=== PATIENT | male | born 1935 | race Caucasian/White ===

== ENCOUNTER 2019-10-03 11:12 | Inpatient (IN) | payer OTHER, MEDICARE ==
[~2019-10-03] VITALS: Ht 172.7 cm; Wt 115.5 kg
[2019-10-03] MEDS ORDERED: CARVEDILOL12.5 MG PO (11:31)
[2019-10-03] MEDS ORDERED: Azopt10 ML BOTHEYES (11:31)
[2019-10-03] MEDS ORDERED: DILTIAZEM 24HR240 M4 PO (11:32)
[2019-10-03] MEDS ORDERED: HYDCHL25 PO (11:32)
[2019-10-03] MEDS ORDERED: INSUGL100V SC (11:33)
[2019-10-03] MEDS ORDERED: LEVSOD50 PO (11:33)
[2019-10-03] MEDS ORDERED: NOVOLOG100 UNIT/1 SC (11:33)
[2019-10-03] MEDS ORDERED: METF500 PO ×2 (11:34)
[2019-10-03] MEDS ORDERED: LISI20 PO (11:34)
[2019-10-03] MEDS ORDERED: TIMO.5OPSO BOTHEYES (11:35)
[2019-10-03] MEDS ORDERED: Crestor40 MG PO (11:35)
[2019-10-03 11:37] LABS: BASOPHILS ABSOLUTE AUTO 0.07 K/mm3 (0.00-0.23); BASOPHILS PERCENT AUTO 0 % (0-2); EOSINOPHILS ABSOLUTE AUTO 0.14 K/mm3 (0.00-0.68); EOSINOPHILS PERCENT AUTO 1 % (0-6); Hematocrit 37.1 % (37.0-53.0); Hemoglobin 12.4 g/dL (13.5-17.5); IMMATURE GRAN ABSOLUTE AUTO 0.79 K/mm3 (0.00-0.10); IMMATURE GRAN PERCENT AUTO 4 % (0-1); LYMPHOCYTES ABSOLUTE AUTO 2.39 K/mm3 (0.84-5.20); LYMPHOCYTES PERCENT AUTO 13 % (21-46); MONOCYTES ABSOLUTE AUTO 1.22 K/mm3 (0.16-1.47); MONOCYTES PERCENT AUTO 6 % (4-13); Mean Corpuscular HGB 29.5 pg (26.0-34.0); Mean Corpuscular HGB Conc 33.4 g/dL (31.5-36.5); Mean Corpuscular Volume 88 fL (80-100); Mean Platelet Volume 10.8 fL (9.1-12.4); NEUTROPHILS PERCENT AUTO 76 % (41-73); Platelet Count 440 K/mm3 (150-400); RDW Coefficient Variation 15.9 % (11.7-14.2); RDW Standard Deviation 50.3 fL (35.1-46.3); White Blood Cell Count 19.11 K/mm3 (4.00-11.30)
[2019-10-03 11:51] LABS: Alanine Aminotransfer (ALT/SGP 43 U/L (12-78); Albumin, Blood 1.8 g/dL (3.4-5.0); Albumin/Globulin Ratio 0.3 (0.8-1.8); Alk Phos 128 U/L (50-136); Anion Gap 10 mmol/L (6-16); Aspartate Aminotrans (AST/SGOT 27 U/L (12-37); Bilirubin, Total 0.5 mg/dL (0.1-1.0); Blood Urea Nitrogen 94 mg/dL (8-24); Bun/Creatinine Ratio 39.7 (12.0-20.0); CO2, Blood 22 mmol/L (21-32); Calcium, Blood 9.2 mg/dL (8.5-10.1); Chloride, Blood 107 mmol/L (98-108); Creatinine, Blood 2.37 mg/dL (0.60-1.20); Globulin, Blood 5.7 g/dL (2.2-4.0); Glomerular Filtration Rate 28 (60-); Glucose, Blood 164 mg/dL (70-99); Potassium, Blood 4.9 mmol/L (3.5-5.5); Sodium, Blood 139 mmol/L (136-145); Total Protein, Blood 7.5 g/dL (6.4-8.2); Troponin I <0.015 ng/mL (0.000-0.040)
[2019-10-03] MEDS ORDERED: Aspirin EC81 MG PO (13:37)
[2019-10-03] MEDS ORDERED: B-121000 MC2 PO (14:15)
[2019-10-03] MEDS ORDERED: Crestor20 MG PO (16:09)
[2019-10-04 01:17] LABS: Adenovirus Not Detected (NOT DETECT); Bordetella pertussis Not Detected (NOT DETECT); Chlamydophila pneumoniae Not Detected (NOT DETECT); Coronavirus 229E Not Detected (NOT DETECT); Coronavirus HKU1 Not Detected (NOT DETECT); Coronavirus NL63 Not Detected (NOT DETECT); Coronavirus OC43 Not Detected (NOT DETECT); Human Metapneumovirus Not Detected (NOT DETECT); Human Rhinovirus/Enterovirus Not Detected (NOT DETECT); Influenza A Not Detected (NOT DETECT); Influenza A/2009-H1 Not Detected (NOT DETECT); Influenza A/H1 Not Detected (NOT DETECT); Influenza A/H3 Not Detected (NOT DETECT); Influenza B Not Detected (NOT DETECT); Mycoplasma pneumoniae Not Detected (NOT DETECT); Parainfluenza Virus 1 Not Detected (NOT DETECT); Parainfluenza Virus 2 Not Detected (NOT DETECT); Parainfluenza Virus 3 Not Detected (NOT DETECT); Parainfluenza Virus 4 Not Detected (NOT DETECT); Respiratory Syncytial Virus Not Detected (NOT DETECT)
--- NOTE | 2019-10-04 04:10 | NUR ---
SHIFT SUMMARY SPUTUM SAMPLE RETRIEVED, WAS RESPIRATORY PANEL. MELATONIN ORDERED PRN FOR INSOMNIA. TELEMETRY IS MONITORING, PT HAS A PACEMAKER AND IS PACED @ 63 BPM. HX: MITRAL VALVE REPLACEMENT. PT'S PREVIOUS IV PULLED OUT, NEW IV IN PLACE. PT IS ON RA. ACHS CHEMSTICKS. BS WAS 312 @ HS, MEDICATED PER EMAR. PT HAS A SEVERE RASH IN BOTH OF HIS ARMPITS, HE DOES NOT KNOW WHAT IS CAUSING IT. IV IS RUNNING NS @ 150 ML/HR ORDERED.
--- NOTE | 2019-10-04 04:21 | NUR ---
SHIFT SUMMARY ADDENDUM NS RUNNING @ 125 ML/HOUR, ORDERED.
[2019-10-04 05:06] LABS: BASOPHILS ABSOLUTE AUTO 0.07 K/mm3 (0.00-0.23); BASOPHILS PERCENT AUTO 0 % (0-2); EOSINOPHILS PERCENT AUTO 0 % (0-6); Hematocrit 37.9 % (37.0-53.0); Hemoglobin 12.4 g/dL (13.5-17.5); IMMATURE GRAN ABSOLUTE AUTO 0.73 K/mm3 (0.00-0.10); IMMATURE GRAN PERCENT AUTO 3 % (0-1); LYMPHOCYTES ABSOLUTE AUTO 2.48 K/mm3 (0.84-5.20); LYMPHOCYTES PERCENT AUTO 12 % (21-46); MONOCYTES ABSOLUTE AUTO 0.45 K/mm3 (0.16-1.47); MONOCYTES PERCENT AUTO 2 % (4-13); Mean Corpuscular HGB Conc 32.7 g/dL (31.5-36.5); Mean Corpuscular Volume 89 fL (80-100); Mean Platelet Volume 10.7 fL (9.1-12.4); NEUTROPHILS ABSOLUTE AUTO 17.63 K/mm3 (1.96-9.15); NEUTROPHILS PERCENT AUTO 83 % (41-73); Platelet Count 477 K/mm3 (150-400); RDW Coefficient Variation 16.2 % (11.7-14.2); Red Blood Cell Count 4.27 M/mm3 (4.30-5.90); White Blood Cell Count 21.36 K/mm3 (4.00-11.30)
[2019-10-04 05:26] LABS: Bun/Creatinine Ratio 39.1 (12.0-20.0); Calcium, Blood 8.8 mg/dL (8.5-10.1); Creatinine, Blood 2.3 mg/dL (0.60-1.20); Potassium, Blood 4.9 mmol/L (3.5-5.5)
[2019-10-04] MEDS ORDERED: LUMIGAN2.5 ML BOTHEYES (07:42)
--- NOTE | 2019-10-04 12:27 | NUR ---
ASSUMED CARE: RECIEVED REPORT FROM JOSE GUTIERREZ. ASSISTED PT FROM RESTROOM. SOB ON EXERTION BUT DENIES FURTHER NEEDS.
--- NOTE | 2019-10-04 17:56 | NUR ---
SHIFT SUMMARY PATIENT A/O . CBG'S RAN HIGH DURING SHIFT AND PATIENT REPORTS HOME REGIMEN OF INSULIN HIGHER DOSE THAN IN HOSPITAL. PATIENT REPORTED NO SOB DURING SHIFT. COUGH IS LARGELY UNPRODUCTIVE DURING SHIFT. PATIENT ON TELEMETRY AND PACED. VOIDS ON OWN. ARMPITS BILAT HAVE A VERY RED RASH PRESENT, PATIENT ISN'T REPORTING DISCOMFORT OR PAIN AT THIS TIME. FLUIDS INFUSED WITHOUT ASE.
[2019-10-05 05:16] LABS: BASOPHILS ABSOLUTE AUTO 0.09 K/mm3 (0.00-0.23); BASOPHILS PERCENT AUTO 0 % (0-2); EOSINOPHILS PERCENT AUTO 0 % (0-6); Hematocrit 36.8 % (37.0-53.0); Hemoglobin 12.3 g/dL (13.5-17.5); IMMATURE GRAN ABSOLUTE AUTO 0.53 K/mm3 (0.00-0.10); IMMATURE GRAN PERCENT AUTO 2 % (0-1); LYMPHOCYTES ABSOLUTE AUTO 2.85 K/mm3 (0.84-5.20); LYMPHOCYTES PERCENT AUTO 11 % (21-46); MONOCYTES ABSOLUTE AUTO 1.43 K/mm3 (0.16-1.47); MONOCYTES PERCENT AUTO 5 % (4-13); Mean Corpuscular HGB 29.7 pg (26.0-34.0); Mean Corpuscular HGB Conc 33.4 g/dL (31.5-36.5); Mean Corpuscular Volume 89 fL (80-100); Mean Platelet Volume 10.5 fL (9.1-12.4); NEUTROPHILS ABSOLUTE AUTO 21.56 K/mm3 (1.96-9.15); NEUTROPHILS PERCENT AUTO 82 % (41-73); Platelet Count 473 K/mm3 (150-400); RDW Coefficient Variation 16.1 % (11.7-14.2); RDW Standard Deviation 50.9 fL (35.1-46.3); Red Blood Cell Count 4.14 M/mm3 (4.30-5.90); White Blood Cell Count 26.46 K/mm3 (4.00-11.30)
[2019-10-05 05:45] LABS: Albumin, Blood 1.8 g/dL (3.4-5.0); Anion Gap 9 mmol/L (6-16); Blood Urea Nitrogen 69 mg/dL (8-24); Bun/Creatinine Ratio 35.2 (12.0-20.0); CO2, Blood 18 mmol/L (21-32); Calcium, Blood 8.8 mg/dL (8.5-10.1); Chloride, Blood 118 mmol/L (98-108); Creatinine, Blood 1.96 mg/dL (0.60-1.20); Glomerular Filtration Rate 35 (60-); Glucose, Blood 59 mg/dL (70-99); Potassium, Blood 4.7 mmol/L (3.5-5.5); Sodium, Blood 145 mmol/L (136-145)
--- NOTE | 2019-10-05 07:30 | NUR ---
LATE NOTE WELLNESS TRAINER SUMMARY Patient slept fitfully about 2/3 of the night due to chronoic low back pain. requested nsaids from hospitalist, but she didn't feel comfortable given the fact the patient was here for sepsis. Tylenol given without much effect. then tried kpad which finallly did the trick and allowed the patient to get 3-4 hours of rest. lungs with fine crackles in upper airways and a strong dry hacking cough. tessalon pearles were given in addition to guaffenisen to try to ease and loosen cough. no change overnight after RT tx and medications for cough
--- NOTE | 2019-10-05 12:59 | NUR ---
Pt. in bed relaxed he is doing much better encouraged pt and offered prayers.
--- NOTE | 2019-10-05 17:26 | NUR ---
SHIFT SUMMARY PATIENT A/O. COUGH HAS CHANGED FROM UNPRODUCTIVE TO SOMEWHAT PRODUCTIVE OF SPUTUM/MUCUS. PATIENT HAS BEEN AMBULATING TO BATHROOM. R/L ARMPIT RASH REPORTED IMPROVED BY PATIENT HOWEVER REMAINS REDDENED ON ENTIRE ARMPIT AND TOPICAL CREAM APPLIED TO PATIENTS SATISFACTION. CBG'S HAVE BEEN SOMEWHAT UNSTABLE DURING SHIFT, MORNING LANTUS HELD. FLUIDS TOLERATED WELL.
[2019-10-06 05:13] LABS: BASOPHILS ABSOLUTE AUTO 0.06 K/mm3 (0.00-0.23); BASOPHILS PERCENT AUTO 0 % (0-2); EOSINOPHILS ABSOLUTE AUTO 0.01 K/mm3 (0.00-0.68); EOSINOPHILS PERCENT AUTO 0 % (0-6); Hematocrit 35.2 % (37.0-53.0); Hemoglobin 11.7 g/dL (13.5-17.5); IMMATURE GRAN ABSOLUTE AUTO 0.42 K/mm3 (0.00-0.10); IMMATURE GRAN PERCENT AUTO 2 % (0-1); LYMPHOCYTES ABSOLUTE AUTO 2.29 K/mm3 (0.84-5.20); LYMPHOCYTES PERCENT AUTO 9 % (21-46); MONOCYTES ABSOLUTE AUTO 1.32 K/mm3 (0.16-1.47); MONOCYTES PERCENT AUTO 5 % (4-13); Mean Corpuscular HGB 29.5 pg (26.0-34.0); Mean Corpuscular HGB Conc 33.2 g/dL (31.5-36.5); Mean Corpuscular Volume 89 fL (80-100); Mean Platelet Volume 10.7 fL (9.1-12.4); NEUTROPHILS ABSOLUTE AUTO 20.99 K/mm3 (1.96-9.15); NEUTROPHILS PERCENT AUTO 84 % (41-73); Platelet Count 438 K/mm3 (150-400); RDW Coefficient Variation 16.3 % (11.7-14.2); RDW Standard Deviation 51.7 fL (35.1-46.3); Red Blood Cell Count 3.97 M/mm3 (4.30-5.90); White Blood Cell Count 25.09 K/mm3 (4.00-11.30)
[2019-10-06 06:02] LABS: Albumin, Blood 1.6 g/dL (3.4-5.0); Anion Gap 8 mmol/L (6-16); Blood Urea Nitrogen 50 mg/dL (8-24); Bun/Creatinine Ratio 28.1 (12.0-20.0); CO2, Blood 18 mmol/L (21-32); Calcium, Blood 8.7 mg/dL (8.5-10.1); Chloride, Blood 117 mmol/L (98-108); Creatinine, Blood 1.78 mg/dL (0.60-1.20); Glomerular Filtration Rate 39 (60-); Glucose, Blood 163 mg/dL (70-99); Phosphorus, Blood 3.2 mg/dL (2.5-4.9); Potassium, Blood 5.1 mmol/L (3.5-5.5); Sodium, Blood 143 mmol/L (136-145)
--- NOTE | 2019-10-06 07:21 | NUR ---
PATIENT REQUESTED HIS IVF BE TURNED OFF DURING THIS SHIFT. MADE ON-CALL HOISPITALIST, ALEX MAYS AWARE. PATIENT AGREED THAT HE WOULD RE-CONNECT HIS IVF THIS MORNING BUT CHANGED HIS MIND ABOUT THAT WHEN THE TIME CAME. PASSED THIS TO DAY SHIFT NURSE. PATIENT FEELS ABLE TO DRINK THE FLUIDS HE NEEDS.. PT CALM AND COOPERATIVE THIS SHIFT.
--- NOTE | 2019-10-06 11:37 | NUR ---
Pt. is in bed relaxed , he reports doing well offered prayers for the pt.
--- NOTE | 2019-10-06 18:13 | NUR ---
SHIFT SUMMARY PATIENT A/O. PATIENT BREATHING HAS BEEN STABLE AND COUGH IS PRODUCTIVE. TELEMETRY D/C AND PATIENT IS PACED. PATIENT HAS BEEN AMBULATING. CBG'S HAVE BEEN STABLE. LEFT AND RIGHT ARMPITS HAVE BEEN IMPROVING AND REDNESS IS DIMINISHING RAPIDLY. BACK PAIN REPORTED SATISFACTORY BY PATIENT. FLUIDS D/C'D TODAY.
[2019-10-07 05:06] LABS: Hematocrit 32.6 % (37.0-53.0); Hemoglobin 10.7 g/dL (13.5-17.5); Mean Corpuscular HGB 29.2 pg (26.0-34.0); Mean Corpuscular HGB Conc 32.8 g/dL (31.5-36.5); Mean Corpuscular Volume 89 fL (80-100); Mean Platelet Volume 10.6 fL (9.1-12.4); Platelet Count 438 K/mm3 (150-400); RDW Coefficient Variation 16.3 % (11.7-14.2); RDW Standard Deviation 52.5 fL (35.1-46.3); Red Blood Cell Count 3.67 M/mm3 (4.30-5.90); White Blood Cell Count 22.39 K/mm3 (4.00-11.30)
[2019-10-07 05:31] LABS: Calcium, Blood 8.6 mg/dL (8.5-10.1); Creatinine, Blood 1.92 mg/dL (0.60-1.20); Potassium, Blood 5.1 mmol/L (3.5-5.5)
[2019-10-07] MEDS ORDERED: BENZ100A PO (12:12)
[2019-10-07] MEDS ORDERED: LEVO750 PO (12:13)
[2019-10-07] MEDS ORDERED: LACT PO (12:13)
[2019-10-07] MEDS ORDERED: LIDO700A20 TOP (12:14)
--- NOTE | 2019-10-07 14:57 | NUR ---
PT DISCHARGED PT DISCHARGED IN STABLE CONDITION. NO CHANGES IN ASSESSMENT PRIOR TO DC. PT WHEELED OUT BY AIDE. DRIVEN HOME BY FRIENDS. PT EDUCATED ON FOLLOW UP INSTRUCTIONS, APPOINTMENTS, & NEW MEDS. PT DENIED FURTHER NEED FOR INSTRUCTION.
[2019-10-07] MEDS ORDERED: TAMS.4ER PO (15:29)
== END 2019-10-07 14:54 | disposition home health service (06) | DRG 871 ==
LOC: ER 11:12 → MEDS 14:41 → ENPENDDIS 10-07 11:31 → MEDS 10-07 14:54
PROVIDERS: Emergency Medicine; Internal Medicine; ADMIT Internal Medicine
DX: A41.01 Sepsis due to Methicillin susceptible Staphylococcus aureus (principal); J18.9 Pneumonia, unspecified organism; J96.91 Respiratory failure, unspecified with hypoxia; N17.9 Acute kidney failure, unspecified; N13.30 Unspecified hydronephrosis; E11.65 Type 2 diabetes mellitus with hyperglycemia; R65.20 Severe sepsis without septic shock; E03.9 Hypothyroidism, unspecified; N20.0 Calculus of kidney; I95.9 Hypotension, unspecified; E78.5 Hyperlipidemia, unspecified; H40.9 Unspecified glaucoma; M54.9 Dorsalgia, unspecified; B37.9 Candidiasis, unspecified; I10 Essential (primary) hypertension; Z88.2 Allergy status to sulfonamides; Z79.84 Long term (current) use of oral hypoglycemic drugs; Z79.82 Long term (current) use of aspirin; Z79.4 Long term (current) use of insulin; Z79.899 Other long term (current) drug therapy; Z87.891 Personal history of nicotine dependence
CPT/HCPCS: 0099U; 36415; 71046; 74176; 76770; 80048; 80053; 80069; 82947; 83605; 83880; 84145; 84484; 85025; 85027; 87040; 87070; 87077; 87186; 87205; 93005; 93010; 93306; 94640; 94760; 96361; 96365; 96367; 96375; 97162; 97165; 97530; 97535; 99285-25; J0456; J0696; J1650; J1956; J2930; J7030; J7050

== ENCOUNTER 2021-02-22 16:55 | Emergency (ER) | payer OTHER, MEDICARE ==
[~2021-02-22] VITALS: Ht 172.7 cm; Wt 113.4 kg
[~2021-02-22 16:55] MED LIST: Aspirin EC81 MG PO; Azopt10 ML BOTHEYES; B-121000 MC2 PO; BENZ100A PO; CARVEDILOL12.5 MG PO; Crestor20 MG PO; Crestor40 MG PO; DILTIAZEM 24HR240 M4 PO; HYDCHL25 PO; INSUGL100V SC; LACT PO; LEVO750 PO; LEVSOD50 PO; LIDO700A20 TOP; LISI20 PO; LUMIGAN2.5 ML BOTHEYES; METF500 PO; NOVOLOG100 UNIT/1 SC; TAMS.4ER PO; TIMO.5OPSO BOTHEYES
[2021-02-22 17:51] LABS: BASOPHILS ABSOLUTE AUTO 0.06 K/mm3 (0.00-0.23); BASOPHILS PERCENT AUTO 1 % (0-2); EOSINOPHILS ABSOLUTE AUTO 0.19 K/mm3 (0.00-0.68); EOSINOPHILS PERCENT AUTO 2 % (0-6); Hematocrit 39.6 % (37.0-53.0); Hemoglobin 12.5 g/dL (13.5-17.5); IMMATURE GRAN ABSOLUTE AUTO 0.08 K/mm3 (0.00-0.10); IMMATURE GRAN PERCENT AUTO 1 % (0-1); LYMPHOCYTES ABSOLUTE AUTO 2.26 K/mm3 (0.84-5.20); LYMPHOCYTES PERCENT AUTO 19 % (21-46); MONOCYTES ABSOLUTE AUTO 0.96 K/mm3 (0.16-1.47); MONOCYTES PERCENT AUTO 8 % (4-13); Mean Corpuscular HGB 28.7 pg (26.0-34.0); Mean Corpuscular HGB Conc 31.6 g/dL (31.5-36.5); Mean Corpuscular Volume 91 fL (80-100); Mean Platelet Volume 9.5 fL (9.1-12.4); NEUTROPHILS ABSOLUTE AUTO 8.28 K/mm3 (1.96-9.15); NEUTROPHILS PERCENT AUTO 70 % (41-73); Platelet Count 249 K/mm3 (150-400); RDW Coefficient Variation 14.7 % (11.7-14.2); RDW Standard Deviation 49.7 fL (35.1-46.3); Red Blood Cell Count 4.36 M/mm3 (4.30-5.90); White Blood Cell Count 11.83 K/mm3 (4.00-11.30)
[2021-02-22] MEDS ORDERED: CHLO25B PO (18:10)
[2021-02-22 18:44] LABS: Alanine Aminotransfer (ALT/SGP 17 U/L (12-78); Albumin, Blood 3.3 g/dL (3.4-5.0); Alk Phos 50 U/L (50-136); Anion Gap 8 mmol/L (6-16); Aspartate Aminotrans (AST/SGOT 20 U/L (12-37); CO2, Blood 21 mmol/L (21-32); Calcium, Blood 8.5 mg/dL (8.5-10.1); Chloride, Blood 111 mmol/L (98-108); Creatinine, Blood 1.21 mg/dL (0.60-1.20); Globulin, Blood 3.4 g/dL (2.2-4.0); Glomerular Filtration Rate >60 (60-); Glucose, Blood 101 mg/dL (70-99); Magnesium, Blood 2.2 mg/dL (1.6-2.4); Potassium, Blood 4.1 mmol/L (3.5-5.5); Sodium, Blood 140 mmol/L (136-145); Total Protein, Blood 6.7 g/dL (6.4-8.2)
[2021-02-22 19:18] LABS: Bilirubin, Total 0.4 mg/dL (0.1-1.0); Blood Urea Nitrogen 22 mg/dL (8-24); Bun/Creatinine Ratio 18.2 (12.0-20.0)
== END 2021-02-22 21:58 | disposition home or self-care (01) ==
LOC: ER 16:55
PROVIDERS: Emergency Medicine
DX: E11.649 Type 2 diabetes mellitus with hypoglycemia without coma (principal); S00.01XA Abrasion of scalp, initial encounter; S51.012A Laceration without foreign body of left elbow, initial encounter; I10 Essential (primary) hypertension; E78.5 Hyperlipidemia, unspecified; E03.9 Hypothyroidism, unspecified; Z79.899 Other long term (current) drug therapy; Z88.1 Allergy status to other antibiotic agents; Z79.4 Long term (current) use of insulin; Z79.01 Long term (current) use of anticoagulants; Z88.2 Allergy status to sulfonamides; Z23 Encounter for immunization; V89.2XXA Person injured in unspecified motor-vehicle accident, traffic, initial encounter; Y92.410 Unspecified street and highway as the place of occurrence of the external cause
CPT/HCPCS: 36415; 70450; 72125; 80053; 82947; 83735; 85025; 90471; 90714; 93005; 93010; 99284-25